=== PATIENT | male | born 1975 | race Caucasian/White ===

== ENCOUNTER 2016-06-26 13:06 | Day surgery (SDC) | payer BC ==
--- NOTE | ~2016-06-26 | OP ---
Record Of Operation [facility] [address] [place]. [address] NAME: ALE WOMACK : 79 STATUS : [facility]#: [id number] AGE: 40 ADM/REG DATE : 06/26/16 MR#: [id number] REPORT SERV DATE: 06/27/16 DICTATED BY: NAMAN PÉREZ DATE: 06/26/16 REPORT STATUS : Draft TRANSCRIBED BY: CIELO DATE: 06/26/16 DATE OF PROCEDURE: 06/26/2016 PREOPERATIVE DIAGNOSIS: Right ureteral stone. POSTOPERATIVE DIAGNOSIS: Right ureteral stone. PROCEDURE: 1. Right extracorporeal shock wave lithotripsy. 2. Intravenous pyelogram on the table. SURGEON: Naman Pérez M.D. ANESTHESIA: MAC. SPECIMENS: None. ESTIMATED BLOOD LOSS: None. DISPOSITION: To Day Surgery in good condition. HISTORY: This is a 40-year-old patient of Dr. Jayden Garcia, who has a right distal ureteral stone, who presents today for the above-stated procedure. PROCEDURE IN DETAIL: After consent was obtained, the patient was taken to the lithotripsy table and placed on the table in supine position. The patient states he is still having the same right flank pain that he was having on Sunday when his stone was confirmed on KUB in the distal right ureter. The stone was not as easily seen on KUB or fluoroscopy today on the lithotripsy table. His creatinine was 1.2, so a half dose of IV contrast was given and his right distal ureter was targeted at the ureterovesical junction. Once this area was located on two planes on the Dornier machine MAC anesthetic was induced. He then received 3000 shocks from an anterior approach and a maximum power level of 5 and rate of 90. He tolerated the procedure and was taken to Day Surgery in good condition. Plan will be to send him home on Percocet 7.5, #30, Levaquin 750, #2, to start tomorrow, ondansetron #10, and Flomax #30. He is to follow up in two to three weeks with the KUB. DAKSHA/CIELO Naman Pérez M.D. / [id number] Record Of Operation [address] [place]. [address] NAME: ALE WOMACK : 79 STATUS : [facility] PAT#: [id number] AGE: 40 ADM/REG DATE : 06/26/16 MR#: [id number] REPORT SERV DATE: 06/27/16 DICTATED BY: NAMAN PÉREZ DATE: 06/26/16 REPORT STATUS : Draft TRANSCRIBED BY: CIELO DATE: 06/26/16 CC: Albertina [facility]
[~2016-06-26 13:06] MED LIST: ADDERALL30 MG PO; ADVIL PO; FLOMAX4 PO; NORCO1 TA1 PO; ZOVIRAX400 MG PO
[2016-06-26 14:24] LABS: ASCORBIC ACID (UR NOT ORDER) NEG (NEG); BILIRUBIN, URINE NEGATIVE (NEG); KETONE, URINE NEGATIVE (NEG); LEUKOCYTE ESTERASE(NOT OR NEG (NEG); WBC (NOT ORDERED) (RFLEX) 1 (0-5)
[2016-06-26 14:36] LABS: BASOPHILS 0.2 %; BASOPHILS ABSOLUTE 0.02 10/3/uL (0.0-0.16); EOSINOPHILS 0.5 %; EOSINOPHILS ABSOLUTE 0.05 10/3/uL (0.0-0.53); HEMATOCRIT 48.4 % (40.0-51.0); HEMOGLOBIN 16.8 g/dL (13.6-17.8); IMMATURE GRANULOCYTES 0.2 %; IMMATURE GRANULOCYTES ABSOLUTE 0.02 10/3/uL (0.0-0.11); LYMPHOCYTES 12.2 %; LYMPHOCYTES ABSOLUTE 1.13 10/3/uL (0.67-4.30); MEAN CORPUS HGB CONC 34.7 g/dL (32.0-36.0); MEAN CORPUSCULAR HEMOGLOB 31.9 pg (26.0-34.0); MEAN PLATELET VOLUME 9.6 fL (9.2-13.0); MONOCYTES 7.2 %; MONOCYTES ABSOLUTE 0.67 10/3/uL (0.21-1.20); NEUTROPHILS 79.7 %; NEUTROPHILS ABSOLUTE 7.36 10/3/uL (2.02-8.40); PLATELET COUNT 273 10/3/uL (150-400); RBC DISTRIBUTION WIDTH 13.1 % (12.0-16.0); RED CELL COUNT 5.26 10/6/uL (4.7-6.1); WHITE BLOOD CELLS 9.3 10/3/uL (4.5-10.5)
[2016-06-26 14:38] LABS: MANUAL DIFF NO %
[2016-06-26 14:49] LABS: BUN (BLOOD UREA NITROGEN) 14 MG/DL (6-23); CHLORIDE, SERUM 104 MMOL/L (96-112); CO2 (CARBON DIOXIDE) 33 MMOL/L (24-34); GFR AFRICAN AMERICAN 88 ML/MIN (>=60); GFR NON AFRICAN AMERICAN 76 ML/MIN (>=60); GLUCOSE, SERUM 110 MG/DL (60-99); POTASSIUM, SERUM 4.3 MMOL/L (3.5-5.3); SODIUM, SERUM 141 MMOL/L (135-148)
== END 2016-06-26 21:52 | disposition home or self-care (01) ==
LOC: SDC 13:06
PROVIDERS: Urology
PROC: 0TF6XZZ Fragmentation in Right Ureter, External Approach (ICD-10-PCS; principal; 2016-06-26 15:00)
DX: N20.1 Calculus of ureter (principal); N20.0 Calculus of kidney; F90.9 Attention-deficit hyperactivity disorder, unspecified type; F17.210 Nicotine dependence, cigarettes, uncomplicated; Z72.0 Tobacco use; Z79.899 Other long term (current) drug therapy; Z79.891 Long term (current) use of opiate analgesic
CPT/HCPCS: 50590; 74000; 80048; 81001; 85025; A9270-GY; J2250; J3010; Q9967